=== PATIENT | female | born 1990 | race Caucasian/White ===

== ENCOUNTER → 2021-03-07 | Outpatient (CLI) | payer OTHER ==
[~2021-03-07] MED LIST: AUGMENTIN 875-1 EACH PO; IBUPROFEN600 MG PO; NORCO 5-325 TA1 EACH PO; ZOFRAN ODT4 MG PO
== END ==
LOC: KOH-I 13:11
DX: R06.02 Shortness of breath (principal); R05 Cough
CPT/HCPCS: 71046